=== PATIENT | female | born 2000 | race Asian ===

== ENCOUNTER 2023-02-03 10:10 | Outpatient (REF) | payer MEDICAID, SELFPAY ==
--- NOTE | ~2023-02-03 | XR_ITS ---
EXAMINATION: XR FINGER, LEFT CLINICAL INFORMATION: Left finger pain COMPARISON: None available. TECHNIQUE: PA view of the left hand and oblique and lateral views of the left middle finger. FINDINGS: The bones are intact No fracture. Alignment is anatomic. Joint spaces are maintained. Mild periosteal reaction is seen along the distal aspect of the proximal phalanx of the middle finger. This is of uncertain clinical significance, if of any. XR/XR finger LT min 2V IMPRESSION: Mild periosteal reaction along the distal aspect of the proximal phalanx of the middle finger. This is of uncertain clinical significance, if of any.
== END 2023-02-03 10:11 | disposition home or self-care (01) ==
LOC: HO.XRAY 10:10
PROVIDERS: Visit Provider Family Medicine Adult Medicine
DX: M79.645 Pain in left finger(s) (principal)
CPT/HCPCS: 73140